=== PATIENT | female | born 1970 | race American Indian/Alaskan Native ===

== ENCOUNTER 2016-11-20 15:13 | Emergency (ER) | payer BC ==
[2016-11-20 15:55] VITALS: BP 156/82
[2016-11-20] MEDS ORDERED: TORADOL IM ONE (17:57)
--- NOTE | 2016-11-20 18:01 | Emergency Department Report ---
HPI - General Chief Complaint: Extremity Injury, Lower Time Seen by Provider: 11/20/16 17:48 - HPI HPI: This is a 46-year-old [place] female presents the emergency department with a two-week history of right lower extremity pain and swelling. It is mostly around the knee and sometimes in the back and the knee and the calf. The patient went on November 06 a will start emergency urgent care and had a venous Doppler study that she says resulted as no blood clot found. She was given some Percocet, which she has taken without much relief, but the pain continues to be painful and swollen. She denies any trauma to the area. She denies any past medical history. She does not have a primary care doctor. No recent travel or sick contacts at home. She denies any skin color change, rash , itching. She is able to ambulate but has pain with doing so. ED Past Medical Hx - Past Medical History Previous Medical History?: Yes Additional medical history: Right leg pain and swelling - Surgical History Past Surgical History?: No - Social History Smoking Status: Current Every Day Smoker Substance Use Type: Non Opiate Pain, Prescribed - Medications Home Medications: Home Medications Medication Instructions Recorded Confirmed Last Taken Type traMADol [Ultram] 50 mg PO Q6HR PRN #12 tablet 11/20/16 Unknown Rx ED Review of Systems ROS: Stated complaint: RT SWOLLEN LEG Other details as noted in HPI Comment: All other systems reviewed and negative Constitutional: denies: chills, fever Eyes: denies: eye pain, eye discharge, vision change ENT: denies: ear pain, throat pain Respiratory: denies: cough, shortness of breath, wheezing Cardiovascular: denies: chest pain, palpitations Gastrointestinal: denies: abdominal pain, nausea, diarrhea Genitourinary: denies: urgency, dysuria, discharge Musculoskeletal: joint swelling, arthralgia, myalgia. denies: back pain Skin: denies: rash, lesions Neurological: denies: headache, weakness, paresthesias Physical Exam - Physical Exam Vital Signs: Vital Signs 11/20/16 15:49 Temperature 98.2 F Pulse Rate 72 Respiratory 18 Rate Blood Pressure 156/82 O2 Sat by Pulse 100 Oximetry Physical Exam: GENERAL: The patient is well-developed well-nourished. HEENT: Normocephalic. Atraumatic. Extraocular motions are intact. Patient has moist mucous membranes. Pupils equal reactive to light bilaterally. NECK: Supple. Trachea is midline. CHEST/LUNGS: Clear to auscultation. There is no respiratory distress noted. HEART/CARDIOVASCULAR: Regular. There is no tachycardia. There is no gallop rub or murmur. ABDOMEN: Abdomen is soft, nontender. Patient has normal bowel sounds. There is no abdominal distention. SKIN: There is some mild nonpitting swelling around the right knee. NEURO: The patient is awake, alert, and oriented. The patient is cooperative. The patient has no focal neurologic deficits. The patient has normal speech. MUSCULOSKELETAL: There is some tenderness to palpation to the posterior right knee and superior portion of the right calf. Mild nonpitting swelling to this region but no skin change or deformity. Negative anterior and posterior drawer test of the right knee. No laxity with valgus or varus stress to the right knee. There is no limitation range of motion. There is no evidence of acute injury. ED Course Vital Signs 11/20/16 15:49 Temperature 98.2 F Pulse Rate 72 Respiratory 18 Rate Blood Pressure 156/82 O2 Sat by Pulse 100 Oximetry ED Medical Decision Making - Radiology Data Radiology results: report reviewed, image reviewed interpreted by me: X-ray of the right knee does not show any fracture, dislocation, obvious effusion Venous Doppler negative for DVT to the right lower extremity. - Medical Decision Making 46-year-old female presents with a 2-3 week history of some pain to the right knee and sometimes the calf as well as some swelling to this region. She had already previously had one negative venous Doppler. She had another venous Doppler here that was also negative for DVT. There is some mild swelling but otherwise there is no significant deformity or abnormality. An x-ray was done of the right knee that does not show any fracture, dislocation or any obvious effusion. Patient placed in a knee immobilizer and given some pain medication. She was given referrals for primary care and orthopedist. We discussed keeping the leg elevated and compression. She will return to the ER with any worsening of her symptoms or any acute distress. - Differential Diagnosis DVT, dislocation, arthritis, fracture, joint effusion Critical Care Time: No Critical care attestation.: If time is entered above; I have spent that time in minutes in the direct care of this critically ill patient, excluding procedure time. ED Disposition Clinical Impression: Pain In Right Leg, Right leg swelling Hypertension Qualifiers: Hypertension type: essential hypertension Qualified Code(s): I10 - Essential ( primary) hypertension Right knee pain Qualifiers: Chronicity: acute Qualified Code(s): M25.561 - Pain in right knee Disposition: DISCHARGED TO HOME OR SELFCARE Is pt being admited?: No Condition: Stable Instructions: Leg Edema (ED), Hypertension (ED), Arthralgia (ED) Additional Instructions: Please follow-up with a primary care doctor in the next few days. I have given your referral for a local orthopedist, Dr. Kapadia, to follow up regarding your right leg pain and knee pain. Return to the emergency department with any worsening of your symptoms or any acute distress. You've been prescribed a medication that is sedating. Therefore this medication cannot be mixed with alcohol, or taken prior to driving, working, or being responsible for children. Prescriptions: traMADol [Ultram] 50 mg PO Q6HR PRN #12 tablet PRN Reason: Pain Referrals: PRIMARY CARE, [Primary Care Provider] - 3-5 Days AJITH KAPADIA MD [Staff Physician] - 3-5 Days LUCY CRUZ MD [Staff Physician] - 3-5 Days Time of Disposition: 19:31
--- NOTE | 2016-11-20 18:43 | XRay Report ---
FINAL REPORT EXAM: XR KNEE 3V RT HISTORY: right knee pain COMPARISONS: None. FINDINGS: AP and lateral views right knee No bone lesion, periosteal reaction, or fracture. No deformity or gross malalignment. Joint spaces are unremarkable. No effusion. IMPRESSION: No fracture or effusion involving the right knee.
--- NOTE | 2016-11-21 10:18 | Vascular Lab Report ---
Right Lower Extremity Venous Duplex Study: Reason for Exam: Pain and swelling of the right lower extremity. Comments on the Right: All veins visualized are freely compressible without evidence of internal echogenicity. Flow is spontaneous and phasic throughout. No evidence of acute or chronic thrombus is seen in any of the vessels visualized. Soft tissue changes likely represent an effusion. Comments on the Left: A limited duplex study was done of the proximal veins of the left lower extremity. All veins visualized are freely compressible without evidence of internal echogenicity. Flow is spontaneous and phasic throughout. No evidence of acute or chronic thrombus is seen in any of the vessels visualized. Impression: No evidence of acute or chronic deep venous thrombosis in the right lower extremity.
== END 2016-11-20 19:50 | disposition home or self-care (01) ==
LOC: ED 15:13
DX: M25.561 Pain in right knee (principal); I10 Essential (primary) hypertension; F17.200 Nicotine dependence, unspecified, uncomplicated
CPT/HCPCS: 29505; 73562; 93971; 96372; 99283; J1885